=== PATIENT | male | born 1955 | race Caucasian/White ===

== ENCOUNTER 2019-01-26 23:37 | Inpatient (IN) | payer MEDICAID ==
[~2019-01-26] VITALS: Ht 193 cm; Wt 159.1 kg
[2019-01-27] VITALS (9 sets, daily range): BP systolic 92–163; BP diastolic 57–98
[2019-01-27] MEDS ORDERED: heparin 10,000 units/1 ML INJ IV PRN (00:15)
[2019-01-27] MEDS ORDERED: ipratropium/albuterol 3ml nebule NEB ONE (00:20)
[2019-01-27] MEDS: heparin 25,000 UNIT/250ml bag 250 ML IV SCH ×3 (00:20→19:42)
[2019-01-27] MEDS ORDERED: normal saline 1000ML IV soln IVB ONE (00:20)
[2019-01-27] MEDS ORDERED: vancomycin/NS 1 GM ADD-VANTAGE 250 ML IV ONE (00:30)
--- NOTE | 2019-01-27 02:09 | NUR ---
BRENDEN ALVAREZ MADE AWARE OF PT CONTINUED PULSE OF 140'S. NO NEW ORDERS AT THIS TIME. WILL CONTINUE TO MONITOR
[2019-01-27] MEDS ORDERED: iohexol 350MG/ML 100ml bottle IV ONE (02:32)
[2019-01-27 02:45] LABS: ALBUMIN 2.8 G/DL (3.4-5.0); ANION GAP 11 (8-16); BLOOD UREA NITROGEN 37 MG/DL (7-18); BUN/CREATININE RATIO 26.2 (5.4-32.0); CALCIUM 8.1 MG/DL (8.5-10.1); CHLORIDE 100 MMOL/L (99-107); CREATININE 1.41 MG/DL (0.60-1.10); GLUCOSE 76 MG/DL (70-104); POTASSIUM 4.4 MMOL/L (3.5-5.1); SODIUM 135 MMOL/L (135-145); TOTAL CARBON DIOXIDE 24.5 MMOL/L (24-32); eGFR 51 ML/MIN
[2019-01-27] MEDS ORDERED: ALB0.5UD IH (03:23)
[2019-01-27] MEDS ORDERED: BECL7.3A INH (03:23)
[2019-01-27] MEDS ORDERED: LISI-600 PO (03:23)
[2019-01-27] MEDS ORDERED: FURO-150 PO (03:23)
[2019-01-27] MEDS ORDERED: PREG100C PO (03:23)
[2019-01-27] MEDS ORDERED: ALBU18HF2 INH (03:23)
[2019-01-27] MEDS ORDERED: NAPR-56 PO (03:23)
[2019-01-27] MEDS ORDERED: POTA10TA19 PO (03:23)
[2019-01-27] MEDS ORDERED: ATOR20TA PO (03:23)
[2019-01-27] MEDS ORDERED: ASPI81TA52 PO (03:23)
[2019-01-27] MEDS ORDERED: potassium Cl 20 mEq SR tablet PO PRN ×4 (03:25→09:00)
[2019-01-27] MEDS ORDERED: magnesium hydroxide 30ml (MOM) UD suspension PO PRN (03:25)
[2019-01-27] MEDS ORDERED: mag hydrox/Alum hydrox/simeth 30ml oral suspension PO PRN (03:25)
[2019-01-27] MEDS ORDERED: ondansetron/PF 4mg/2ml inj IV PRN (03:25)
[2019-01-27] MEDS ORDERED: acetaminophen 325mg tablet PO PRN (03:25)
[2019-01-27] MEDS ORDERED: diltiazem-NS 100mg/100ml 100 ML IV SCH (03:35)
[2019-01-27] MEDS ORDERED: albuterol 2.5 MG/3 ML nebule NEB PRN (03:40)
--- NOTE | 2019-01-27 06:59 | NUR ---
Problems reprioritized. Patient report given, questions answered & plan of care reviewed with Harleen Greer.
[2019-01-27] MEDS: albuterol 2.5 MG/3 ML nebule NEB SCH ×3 (07:03→20:34)
[2019-01-27] MEDS: budesonide 0.5mg/2ml UD nebule IH SCH ×2 (07:04→20:34)
[2019-01-27] MEDS: normal saline 1000ml 1,000 ML IV SCH (07:59)
[2019-01-27] MEDS ORDERED: pregabalin 25mg capsule PO SCH (08:00)
[2019-01-27] MEDS: K and/or MAG REPLACEMENT MC SCH (08:00)
[2019-01-27] MEDS ORDERED: CefTRIAXone 2gm/D5W 50ml 50 ML IV SCH (08:00)
[2019-01-27] MEDS: aspirin 81mg tablet.DR PO SCH (08:11)
[2019-01-27] MEDS: furosemide 20MG tablet PO SCH (08:12)
[2019-01-27] MEDS: atorvastatin 20mg tablet PO SCH (08:12)
[2019-01-27] MEDS: potassium chloride 8mEq ER tablet PO SCH (08:12)
[2019-01-27] MEDS ORDERED: magnesium 4gm in 100ml NS 100 ML IV PRN (09:00)
[2019-01-27] MEDS ORDERED: potassium CL 10mEq/100ml bag 100 ML IV PRN (09:00)
[2019-01-27] MEDS: piperacillin/tazo 3.375gm/50ml 50 ML IV SCH ×2 (09:52→16:59)
[2019-01-27] MEDS: azithromycin 250mg tablet PO SCH (09:56)
[2019-01-27] MEDS ORDERED: amiodarone 150mg/dext, iso-os 100 ML IV ONE (11:05)
[2019-01-27] MEDS ORDERED: ATRIN INH (11:07)
[2019-01-27] MEDS: amiodarone/D5 360MG/200ML BAG 200 ML IV SCH ×3 (11:39→22:43)
--- NOTE | 2019-01-27 12:14 | NUR ---
Cardiac PTT due at 0600 was late r/t lab unable to get blood from pt. PICC nurse came and placed a midline in RFA. lab was sent and lab was unable to test specimen. Delay in process r/t inability to obtain blood specimen
--- NOTE | 2019-01-27 13:23 | NUR ---
Robinson Allison Rm 3016P Amiodarone for 2 hours and HR still ~140 MAYITO Canseco
[2019-01-27] MEDS ORDERED: digoxin 250mcg/ml 2ml ampule IV ONE (14:20)
[2019-01-27] MEDS: nystatin 15 GM powder TP SCH ×3 (15:01→21:00)
[2019-01-27] MEDS ORDERED: ipratropium 0.5 MG/2.5ML nebule IH PRN (15:10)
--- NOTE | 2019-01-27 16:59 | NUR ---
Malnutrition consult: RD attempted visit with pt at bedside however pt sleeping. Patient with no wt hx in EMR to assess for wt changes at this time. Pt currently on regular diet documented with 100% PO intake. No significant decrease in muscle strength or edema. Pt currently lacks a minimum of two criteria for malnutrition. D/w dietary to send double protein BIDLD for satiety. Will continue to follow. Addendum: 01/27/19 at [address] Amended: Links added.
--- NOTE | 2019-01-27 18:00 | NUR ---
Problems reprioritized. Patient report given, questions answered & plan of care reviewed with MAYITO Garcia.
--- NOTE | 2019-01-27 18:10 | NUR ---
Patient in room PCU 3014. I have received report from Adalid EDMOND and had the opportunity to ask questions and assume patient care.
--- NOTE | 2019-01-27 19:22 | NUR ---
pt ptt is 46 theurapatic, no change at this time, heparin running @1500
--- NOTE | 2019-01-27 20:01 | NUR ---
pt has 5 beats run of vtach will notify dr. abdi
[2019-01-27] MEDS: digoxin 250mcg/ml 2ml ampule IV SCH (20:28)
[2019-01-27] MEDS: lactobacillus rhamnosus 10,000 MMU CELLS/CAPSULE PO SCH (20:33)
[2019-01-28] VITALS (19 sets, daily range): BP systolic 102–156; BP diastolic 49–120
[2019-01-28] MEDS: piperacillin/tazo 3.375gm/50ml 50 ML IV SCH ×3 (00:10→16:03)
--- NOTE | 2019-01-28 01:35 | NUR ---
Ptt reviewed it was 46 @2345, not change in rate, still runing at 1500, next PTT is at 0545
[2019-01-28] MEDS: digoxin 250mcg/ml 2ml ampule IV SCH (02:10)
[2019-01-28] MEDS: albuterol 2.5 MG/3 ML nebule NEB SCH ×4 (02:43→20:38)
[2019-01-28] MEDS: amiodarone/D5 360MG/200ML BAG 200 ML IV SCH ×2 (05:04→17:30)
[2019-01-28 05:59] LABS: BASOPHILS # (AUTO) 0.1 X10'3 (0-0.2); BASOPHILS % (AUTO) 0.6 % (0-1); EOSINOPHILS # (AUTO) 0.1 X10'3 (0-0.9); EOSINOPHILS % (AUTO) 0.6 % (0-6); HEMATOCRIT 37.1 % (42.0-52.0); HEMOGLOBIN 12.1 g/dl (14.0-17.9); LYMPHOCYTES # (AUTO) 0.9 X10'3 (1.1-4.8); LYMPHOCYTES % (AUTO) 8.4 % (21-51); MEAN CORPUSCULAR HEMOGLOBIN 30.6 PG (27.0-31.0); MEAN CORPUSCULAR HGB CONC 32.7 g/dL (33.0-36.5); MEAN CORPUSCULAR VOLUME 93.8 FL (78-98); MEAN PLATELET VOLUME 7.5 FL (7.4-10.4); MONOCYTES # (AUTO) 1.2 X10'3 (0-0.9); MONOCYTES % (AUTO) 10.7 % (2-12); NEUTROPHILS # (AUTO) 8.9 X10'3 (1.8-7.7); NEUTROPHILS % (AUTO) 79.7 % (42-75); PLATELET COUNT 164 X10'3 (140-440); RED BLOOD COUNT 3.96 X10'6 (4.70-6.10); RED CELL DISTRIBUTION WIDTH 17.4 % (11.5-14.5); WHITE BLOOD COUNT 11.1 X10'3 (4.5-11.0)
--- NOTE | 2019-01-28 06:00 | NUR ---
Patient in room PCU 3014. I have received report from MAYITO Garcia and had the opportunity to ask questions and assume patient care.
[2019-01-28 06:25] LABS: ALANINE AMINOTRANSFERASE 99 U/L (12-78); ALBUMIN 2.5 G/DL (3.4-5.0); ALBUMIN/GLOBULIN RATIO 0.6 (1.1-1.5); ALKALINE PHOSPHATASE 76 IU/L (46-116); ANION GAP 7 (8-16); ASPARTATE AMINO TRANSFERASE 42 U/L (10-37); BILIRUBIN,TOTAL 1.1 MG/DL (0.1-1.0); BLOOD UREA NITROGEN 28 MG/DL (7-18); BUN/CREATININE RATIO 23.7 (5.4-32.0); CALCIUM 7.6 MG/DL (8.5-10.1); CHLORIDE 101 MMOL/L (99-107); CREATININE 1.18 MG/DL (0.60-1.10); GLUCOSE 107 MG/DL (70-104); MAGNESIUM 1.5 MG/DL (1.5-2.4); PHOSPHORUS 3.7 MG/DL (2.3-4.5); POTASSIUM 3.9 MMOL/L (3.5-5.1); SODIUM 133 MMOL/L (135-145); TOTAL CARBON DIOXIDE 25.4 MMOL/L (24-32); TOTAL PROTEIN 6.4 G/DL (6.4-8.2); eGFR 62 ML/MIN
[2019-01-28] MEDS: azithromycin 250mg tablet PO SCH (07:41)
[2019-01-28] MEDS: furosemide 20MG tablet PO SCH (07:41)
[2019-01-28] MEDS: aspirin 81mg tablet.DR PO SCH (07:41)
[2019-01-28] MEDS: lactobacillus rhamnosus 10,000 MMU CELLS/CAPSULE PO SCH ×2 (07:41→19:34)
[2019-01-28] MEDS: atorvastatin 20mg tablet PO SCH (07:42)
[2019-01-28] MEDS: nystatin 15 GM powder TP SCH ×3 (07:46→21:04)
[2019-01-28] MEDS: potassium chloride 8mEq ER tablet PO SCH (07:54)
[2019-01-28] MEDS: budesonide 0.5mg/2ml UD nebule IH SCH ×2 (08:00→20:38)
[2019-01-28] MEDS: K and/or MAG REPLACEMENT MC SCH (08:00)
[2019-01-28] MEDS ORDERED: pneumococcal 23-VAL P-sac vacc 25 mcg/0.5ml vial IMVAC ONE (10:00)
[2019-01-28] MEDS: heparin 25,000 UNIT/250ml bag 250 ML IV SCH (13:45)
[2019-01-28] MEDS: digoxin 125mcg (0.125mg) tablet PO SCH (14:34)
--- NOTE | 2019-01-28 15:08 | NUR ---
Robinson Allison Rm 9620M Will add Docusate 100mg po qd MAYITO Canseco ext [id number] page to [facility]
[2019-01-28] MEDS ORDERED: docusate sod 100mg capsule PO ONE (15:10)
--- NOTE | 2019-01-28 15:45 | NUR ---
Nutrition consult: Per [facility] notes pt with purple/red toes, with a blister on left foot, and at risk for skin breakdown. Pt currently receiving double protein BIDLD and documented with 100% PO intake meeting nutrient needs with adequate protein for skin integrity. Pt seen at bedside endorses a good appetite and states he is getting full from his meals, no food preferences at this time. RD encouraged PO intake of protein for skin integrity. Pt unsure of UBW and reports 50 lb wt loss r/t not eating well secondary to drug use. Pt unsure of wt loss time frame. Pt denies food allergies, difficulty chewing/swallowing, or constipation/diarrhea. No further nutrition intervention or diagnosis at this time. Will continue to follow. Addendum: 01/28/19 at [address] Amended: Links added.
--- NOTE | 2019-01-28 18:27 | NUR ---
Problems reprioritized. Patient report given, questions answered & plan of care reviewed with MAYITO Chadwick.
--- NOTE | 2019-01-28 18:30 | NUR ---
Patient in room PCU 3014. I have received report from Adalid EDMOND and had the opportunity to ask questions and assume patient care.
[2019-01-28] MEDS: apixaban 5mg tablet PO SCH (19:34)
[2019-01-29] VITALS (20 sets, daily range): BP systolic 97–155; BP diastolic 62–111
[2019-01-29] MEDS: piperacillin/tazo 3.375gm/50ml 50 ML IV SCH ×3 (00:27→15:48)
[2019-01-29] MEDS: albuterol 2.5 MG/3 ML nebule NEB SCH ×4 (02:30→21:39)
[2019-01-29] MEDS: normal saline 1000ml 1,000 ML IV SCH (03:23)
[2019-01-29] MEDS: amiodarone/D5 360MG/200ML BAG 200 ML IV SCH (04:17)
[2019-01-29 05:30] LABS: BASOPHILS # (AUTO) 0.1 X10'3 (0-0.2); BASOPHILS % (AUTO) 0.5 % (0-1); EOSINOPHILS # (AUTO) 0.1 X10'3 (0-0.9); EOSINOPHILS % (AUTO) 0.7 % (0-6); HEMATOCRIT 36.8 % (42.0-52.0); HEMOGLOBIN 12.2 g/dl (14.0-17.9); LYMPHOCYTES % (AUTO) 9.3 % (21-51); MEAN CORPUSCULAR VOLUME 94.1 FL (78-98); MEAN PLATELET VOLUME 7.7 FL (7.4-10.4); MONOCYTES # (AUTO) 1.2 X10'3 (0-0.9); MONOCYTES % (AUTO) 11.5 % (2-12); NEUTROPHILS # (AUTO) 8.2 X10'3 (1.8-7.7); PLATELET COUNT 156 X10'3 (140-440); RED BLOOD COUNT 3.91 X10'6 (4.70-6.10); RED CELL DISTRIBUTION WIDTH 16.9 % (11.5-14.5); WHITE BLOOD COUNT 10.6 X10'3 (4.5-11.0)
[2019-01-29 05:54] LABS: ALANINE AMINOTRANSFERASE 88 U/L (12-78); ALBUMIN 2.5 G/DL (3.4-5.0); ALBUMIN/GLOBULIN RATIO 0.6 (1.1-1.5); ALKALINE PHOSPHATASE 76 IU/L (46-116); ANION GAP 9 (8-16); ASPARTATE AMINO TRANSFERASE 41 U/L (10-37); BILIRUBIN,TOTAL 1.1 MG/DL (0.1-1.0); BLOOD UREA NITROGEN 21 MG/DL (7-18); BUN/CREATININE RATIO 19.4 (5.4-32.0); CHLORIDE 98 MMOL/L (99-107); CREATININE 1.08 MG/DL (0.60-1.10); GLUCOSE 98 MG/DL (70-104); MAGNESIUM 1.4 MG/DL (1.5-2.4); PHOSPHORUS 3.2 MG/DL (2.3-4.5); SODIUM 132 MMOL/L (135-145); TOTAL CARBON DIOXIDE 25.1 MMOL/L (24-32); TOTAL PROTEIN 6.6 G/DL (6.4-8.2); eGFR 69 ML/MIN
--- NOTE | 2019-01-29 06:18 | NUR ---
Patient in room PCU 3014. I have received report from Jovan EDMOND and had the opportunity to ask questions and assume patient care.
--- NOTE | 2019-01-29 06:30 | NUR ---
Problems reprioritized. Patient report given, questions answered & plan of care reviewed with Analia EDMOND.
[2019-01-29] MEDS: azithromycin 250mg tablet PO SCH (07:19)
[2019-01-29] MEDS: aspirin 81mg tablet.DR PO SCH (07:20)
[2019-01-29] MEDS: digoxin 125mcg (0.125mg) tablet PO SCH (07:20)
[2019-01-29] MEDS: potassium chloride 8mEq ER tablet PO SCH (07:20)
[2019-01-29] MEDS: furosemide 20MG tablet PO SCH (07:20)
[2019-01-29] MEDS: atorvastatin 20mg tablet PO SCH (07:20)
[2019-01-29] MEDS: apixaban 5mg tablet PO SCH ×2 (07:20→19:39)
[2019-01-29] MEDS: lactobacillus rhamnosus 10,000 MMU CELLS/CAPSULE PO SCH ×2 (07:20→19:39)
[2019-01-29] MEDS: magnesium Cl slow-release 64mg tablet PO PRN ×2 (07:31→19:39)
[2019-01-29] MEDS: K and/or MAG REPLACEMENT MC SCH (07:32)
[2019-01-29] MEDS: budesonide 0.5mg/2ml UD nebule IH SCH ×2 (07:37→21:40)
[2019-01-29] MEDS: nystatin 15 GM powder TP SCH ×3 (08:00→21:00)
--- NOTE | 2019-01-29 10:35 | NUR ---
Received orders to d/c [facility] gtts per dr. arellano
[2019-01-29] MEDS ORDERED: iohexol 350MG/ML 100ml bottle IV ONE (11:03)
[2019-01-29] MEDS ORDERED: iohexol 350 MG/ML 50ML vial IV ONE (11:16)
--- NOTE | 2019-01-29 12:30 | NUR ---
PAGER ID: [phone] MESSAGE: [id number] Jose Allison: SALLY HR is sustained at 130s, Bp 155/100 Thanks Rose [phone]
[2019-01-29] MEDS ORDERED: diltiazem-D5W 125mg/125ml 125 ML IV SCH (15:35)
[2019-01-29] MEDS ORDERED: normal saline 1000ml 1,000 ML IV ONE (15:40)
[2019-01-29] MEDS: metoprolol succinate 25mg (24-HOUR) SR. Tablet PO SCH (15:48)
--- NOTE | 2019-01-29 16:08 | NUR ---
Vancomycin did not run as scheduled for 0800 d/t IV pump complications, pharmacy/md notified, advised to run 1600 Vancomycin as scheduled and will retime vancomycin trough
[2019-01-29] MEDS ORDERED: VANCOMYCIN LEVEL IV ONE (16:30)
[2019-01-29] MEDS: diltiazem-NS 100mg/100ml 100 ML IV SCH (16:50)
--- NOTE | 2019-01-29 18:36 | NUR ---
Problems reprioritized. Patient report given, questions answered & plan of care reviewed with Orestes RN.
--- NOTE | 2019-01-29 18:38 | NUR ---
Patient in room PCU 3014. I have received report from Rose EDMOND and had the opportunity to ask questions and assume patient care.
[2019-01-30] VITALS (14 sets, daily range): BP systolic 97–147; BP diastolic 48–101
[2019-01-30] MEDS: piperacillin/tazo 3.375gm/50ml 50 ML IV SCH ×3 (00:18→19:25)
[2019-01-30] MEDS: albuterol 2.5 MG/3 ML nebule NEB SCH ×4 (02:49→21:06)
--- NOTE | 2019-01-30 06:40 | NUR ---
Problems reprioritized. Patient report given, questions answered & plan of care reviewed with Alisia Gutierrez RN.
[2019-01-30 06:44] LABS: BASOPHILS % (AUTO) 0.3 % (0-1); EOSINOPHILS % (AUTO) 0.2 % (0-6); HEMATOCRIT 39.8 % (42.0-52.0); HEMOGLOBIN 12.8 g/dl (14.0-17.9); LYMPHOCYTES # (AUTO) 0.8 X10'3 (1.1-4.8); LYMPHOCYTES % (AUTO) 6.3 % (21-51); MEAN CORPUSCULAR HGB CONC 32.1 g/dL (33.0-36.5); MEAN CORPUSCULAR VOLUME 93.5 FL (78-98); MEAN PLATELET VOLUME 8.1 FL (7.4-10.4); MONOCYTES # (AUTO) 1.3 X10'3 (0-0.9); MONOCYTES % (AUTO) 9.8 % (2-12); NEUTROPHILS # (AUTO) 10.9 X10'3 (1.8-7.7); NEUTROPHILS % (AUTO) 83.4 % (42-75); PLATELET COUNT 190 X10'3 (140-440); RED BLOOD COUNT 4.26 X10'6 (4.70-6.10); RED CELL DISTRIBUTION WIDTH 17.1 % (11.5-14.5); WHITE BLOOD COUNT 13.1 X10'3 (4.5-11.0)
--- NOTE | 2019-01-30 06:46 | NUR ---
Patient in room PCU 3014. I have received report from MAYITO Carlisle and had the opportunity to ask questions and assume patient care. Pt awake in bed. 20g in left arm pulled out accidentally by pt. Nothing running through IV. Will continue to monitor.
[2019-01-30 07:04] LABS: ALANINE AMINOTRANSFERASE 89 U/L (12-78); ALBUMIN 2.7 G/DL (3.4-5.0); ALBUMIN/GLOBULIN RATIO 0.6 (1.1-1.5); ALKALINE PHOSPHATASE 83 IU/L (46-116); ANION GAP 9 (8-16); ASPARTATE AMINO TRANSFERASE 46 U/L (10-37); BILIRUBIN,TOTAL 1.3 MG/DL (0.1-1.0); BLOOD UREA NITROGEN 19 MG/DL (7-18); BUN/CREATININE RATIO 17.1 (5.4-32.0); CALCIUM 7.9 MG/DL (8.5-10.1); CHLORIDE 99 MMOL/L (99-107); CREATININE 1.11 MG/DL (0.60-1.10); GLUCOSE 98 MG/DL (70-104); MAGNESIUM 1.5 MG/DL (1.5-2.4); PHOSPHORUS 3.1 MG/DL (2.3-4.5); POTASSIUM 4.1 MMOL/L (3.5-5.1); SODIUM 133 MMOL/L (135-145); TOTAL CARBON DIOXIDE 25.1 MMOL/L (24-32); TOTAL PROTEIN 7.1 G/DL (6.4-8.2); eGFR 67 ML/MIN
[2019-01-30] MEDS ORDERED: VANCOMYCIN LEVEL IV ONE ×2 (07:30→15:30)
[2019-01-30] MEDS: budesonide 0.5mg/2ml UD nebule IH SCH ×2 (07:48→21:06)
[2019-01-30] MEDS: K and/or MAG REPLACEMENT MC SCH (08:00)
[2019-01-30] MEDS: normal saline 1000ml 1,000 ML IV SCH ×2 (08:25→15:01)
[2019-01-30] MEDS: lactobacillus rhamnosus 10,000 MMU CELLS/CAPSULE PO SCH ×2 (08:25→19:20)
[2019-01-30] MEDS: furosemide 20MG tablet PO SCH (08:25)
[2019-01-30] MEDS: digoxin 125mcg (0.125mg) tablet PO SCH (08:25)
[2019-01-30] MEDS: azithromycin 250mg tablet PO SCH (08:25)
[2019-01-30] MEDS: metoprolol succinate 25mg (24-HOUR) SR. Tablet PO SCH (08:26)
[2019-01-30] MEDS: aspirin 81mg tablet.DR PO SCH (08:26)
[2019-01-30] MEDS: apixaban 5mg tablet PO SCH ×2 (08:26→19:20)
[2019-01-30] MEDS: potassium chloride 8mEq ER tablet PO SCH (08:26)
[2019-01-30] MEDS: atorvastatin 20mg tablet PO SCH (08:26)
[2019-01-30] MEDS: nystatin 15 GM powder TP SCH ×3 (08:30→20:40)
[2019-01-30] MEDS: diltiazem-NS 100mg/100ml 100 ML IV SCH (11:49)
--- NOTE | 2019-01-30 12:18 | NUR ---
Called pharmacy for venkata at 1145, still awaiting arrival to unit.
--- NOTE | 2019-01-30 18:14 | NUR ---
Problems reprioritized. Patient report given, questions answered & plan of care reviewed with MAYITO Triplett.
--- NOTE | 2019-01-30 18:15 | NUR ---
Patient in room PCU 3014. I have received report from MAYITO Crump and had the opportunity to ask questions and assume patient care.
--- NOTE | 2019-01-30 18:54 | NUR ---
Vanco trough level has returned critically high at 22.4. Nurse was told by pharmacist not to give Vanco that was ordered.
[2019-01-30] MEDS: VANCOmycin 1250MG/NS 250ml Bag 250 ML IV SCH (20:40)
[2019-01-31] MEDS: diltiazem SR 60mg capsule (twice daily) PO SCH ×2 (00:12→08:23)
[2019-01-31 01:00] VITALS: BP 126/108
[2019-01-31] MEDS: piperacillin/tazo 3.375gm/50ml 50 ML IV SCH ×2 (01:03→08:26)
[2019-01-31 03:00] VITALS: BP 142/77
[2019-01-31] MEDS: albuterol 2.5 MG/3 ML nebule NEB SCH ×3 (03:58→14:00)
[2019-01-31] MEDS: VANCOmycin 1250MG/NS 250ml Bag 250 ML IV SCH ×2 (05:25→13:00)
[2019-01-31] MEDS: normal saline 1000ml 1,000 ML IV SCH (05:25)
[2019-01-31 06:00] VITALS: BP 125/99
[2019-01-31 06:11] LABS: BASOPHILS # (AUTO) 0.1 X10'3 (0-0.2); BASOPHILS % (AUTO) 0.9 % (0-1); EOSINOPHILS % (AUTO) 0.1 % (0-6); HEMATOCRIT 39.3 % (42.0-52.0); HEMOGLOBIN 12.6 g/dl (14.0-17.9); LYMPHOCYTES # (AUTO) 0.9 X10'3 (1.1-4.8); LYMPHOCYTES % (AUTO) 6.6 % (21-51); MEAN CORPUSCULAR HEMOGLOBIN 30.1 PG (27.0-31.0); MEAN CORPUSCULAR HGB CONC 32.1 g/dL (33.0-36.5); MEAN CORPUSCULAR VOLUME 93.9 FL (78-98); MONOCYTES # (AUTO) 1.3 X10'3 (0-0.9); MONOCYTES % (AUTO) 9.4 % (2-12); NEUTROPHILS # (AUTO) 11.5 X10'3 (1.8-7.7); PLATELET COUNT 218 X10'3 (140-440); RED BLOOD COUNT 4.18 X10'6 (4.70-6.10); RED CELL DISTRIBUTION WIDTH 17.2 % (11.5-14.5); WHITE BLOOD COUNT 13.8 X10'3 (4.5-11.0)
[2019-01-31 06:25] LABS: ALANINE AMINOTRANSFERASE 93 U/L (12-78); ALBUMIN 2.7 G/DL (3.4-5.0); ALBUMIN/GLOBULIN RATIO 0.6 (1.1-1.5); ALKALINE PHOSPHATASE 77 IU/L (46-116); ANION GAP 12 (8-16); ASPARTATE AMINO TRANSFERASE 40 U/L (10-37); BILIRUBIN,TOTAL 1.8 MG/DL (0.1-1.0); BLOOD UREA NITROGEN 24 MG/DL (7-18); BUN/CREATININE RATIO 21.2 (5.4-32.0); CALCIUM 8.1 MG/DL (8.5-10.1); CHLORIDE 99 MMOL/L (99-107); CREATININE 1.13 MG/DL (0.60-1.10); GLUCOSE 107 MG/DL (70-104); MAGNESIUM 1.5 MG/DL (1.5-2.4); PHOSPHORUS 3.9 MG/DL (2.3-4.5); POTASSIUM 4.2 MMOL/L (3.5-5.1); SODIUM 132 MMOL/L (135-145); TOTAL CARBON DIOXIDE 21.3 MMOL/L (24-32); TOTAL PROTEIN 7.1 G/DL (6.4-8.2); eGFR 65 ML/MIN
--- NOTE | 2019-01-31 06:30 | NUR ---
Problems reprioritized. Patient report given, questions answered & plan of care reviewed with MAYITO Crump.
--- NOTE | 2019-01-31 06:36 | NUR ---
Patient in room PCU 3014. I have received report from MAYITO Triplett and had the opportunity to ask questions and assume patient care.
[2019-01-31] MEDS ORDERED: furosemide 40mg/4ml inj IV SCH ×2 (08:00)
[2019-01-31] MEDS: K and/or MAG REPLACEMENT MC SCH (08:00)
[2019-01-31] MEDS: budesonide 0.5mg/2ml UD nebule IH SCH (08:22)
[2019-01-31] MEDS: potassium chloride 8mEq ER tablet PO SCH (08:23)
[2019-01-31] MEDS: apixaban 5mg tablet PO SCH (08:23)
[2019-01-31] MEDS: azithromycin 250mg tablet PO SCH (08:24)
[2019-01-31] MEDS: atorvastatin 20mg tablet PO SCH (08:24)
[2019-01-31] MEDS: metoprolol succinate 25mg (24-HOUR) SR. Tablet PO SCH (08:24)
[2019-01-31] MEDS: lactobacillus rhamnosus 10,000 MMU CELLS/CAPSULE PO SCH (08:24)
[2019-01-31] MEDS: aspirin 81mg tablet.DR PO SCH (08:25)
[2019-01-31] MEDS: digoxin 125mcg (0.125mg) tablet PO SCH (08:25)
[2019-01-31] MEDS: nystatin 15 GM powder TP SCH ×2 (08:27→13:00)
[2019-01-31] MEDS ORDERED: DIGO125T5 PO (12:27)
[2019-01-31] MEDS ORDERED: DILT360C29 PO (12:27)
[2019-01-31] MEDS ORDERED: CEFD300C3 PO (12:27)
[2019-01-31] MEDS ORDERED: METO-395 PO (12:27)
[2019-01-31] MEDS ORDERED: NYSPWD TP (12:27)
[2019-01-31] MEDS ORDERED: FURO-150 PO (12:27)
[2019-01-31] MEDS ORDERED: AZIT-63 PO (12:27)
[2019-01-31] MEDS ORDERED: APIX5TAB3 PO (12:27)
--- NOTE | 2019-01-31 14:36 | NUR ---
Sent to Dr Salter and case management: PAGER ID: [phone] MESSAGE: RE: Robinson Allison [id number]. Recommend discharge to rehab (versus home) for pt d/t inability to properly ambulate r/t toes and feet. Please see PT notes. -Alisia [phone]
--- NOTE | 2019-01-31 17:57 | NUR ---
Patient was discharged at 1735 home with brother. Patient reviewed discharge packet before signing and being sent home with patient. All belongings sent home with patient, RX called in to pharmacy, PIV's removed, tele d/c'd, and patient wheeled down by staff. Patient left via private vehicle with brother.
[2019-01-31] MEDS ORDERED: VANCOMYCIN LEVEL IV ONE (20:30)
== END 2019-01-31 17:35 | disposition home or self-care (01) | DRG 190 ==
LOC: ER 23:40 → ED HOLD 01-27 03:23 → PCU 3S 01-27 04:10
PROVIDERS: ADMIT Internal Medicine; ATTEND Hospitalist
PROC: B32T1ZZ Computerized Tomography (CT Scan) of Left Pulmonary Artery using Low Osmolar Contrast (ICD-10-PCS; 2019-01-27)
PROC: B3201ZZ Computerized Tomography (CT Scan) of Thoracic Aorta using Low Osmolar Contrast (ICD-10-PCS; 2019-01-27)
PROC: B32S1ZZ Computerized Tomography (CT Scan) of Right Pulmonary Artery using Low Osmolar Contrast (ICD-10-PCS; 2019-01-27)
PROC: 3E0234Z Introduction of Serum, Toxoid and Vaccine into Muscle, Percutaneous Approach (ICD-10-PCS; principal; 2019-01-28)
PROC: BQ2R1ZZ Computerized Tomography (CT Scan) of Right Lower Extremity using Low Osmolar Contrast (ICD-10-PCS; 2019-01-29)
DX: I21.A1 Myocardial infarction type 2 (principal); I26.99 Other pulmonary embolism without acute cor pulmonale; I50.23 Acute on chronic systolic (congestive) heart failure; J85.0 Gangrene and necrosis of lung; I95.9 Hypotension, unspecified; I11.0 Hypertensive heart disease with heart failure; E66.01 Morbid (severe) obesity due to excess calories; G62.9 Polyneuropathy, unspecified; I73.9 Peripheral vascular disease, unspecified; L03.115 Cellulitis of right lower limb; J44.9 Chronic obstructive pulmonary disease, unspecified; I48.92 Unspecified atrial flutter; I48.91 Unspecified atrial fibrillation; E78.5 Hyperlipidemia, unspecified; F10.10 Alcohol abuse, uncomplicated; F12.10 Cannabis abuse, uncomplicated; F15.10 Other stimulant abuse, uncomplicated; F17.200 Nicotine dependence, unspecified, uncomplicated; I25.10 Atherosclerotic heart disease of native coronary artery without angina pectoris; L03.116 Cellulitis of left lower limb; Z79.01 Long term (current) use of anticoagulants; Z91.19 Patient's noncompliance with other medical treatment and regimen; Z23 Encounter for immunization; Z88.2 Allergy status to sulfonamides; Z68.41 Body mass index [BMI] 40.0-44.9, adult
CPT/HCPCS: 36415; 71045; 71275; 73706; 76937; 80048; 80053; 80162; 80202; 83605; 83735; 84100; 84145; 84484; 85025; 85730; 87040; 87081; 93005; 93306; 93925; 93970; 94640; 94760; 96365; 97110; 97161; 97530; 99285; G0378; J0282; J0696; J1160; J1644; J1940; J2543; J3370; J3490; J7030; J7626; Q9967